=== PATIENT | female | born 1990 | race Caucasian/White ===

== ENCOUNTER 2018-03-04 05:52 | Inpatient (IN) | payer OTHER ==
[~2018-03-04] VITALS: Ht 162.6 cm; Wt 77.3 kg
[2018-03-04] MEDS ORDERED: OXYTOCIN 30U/ 0.9% NaCL 500ML 500 ML IV ONE (06:31)
[2018-03-04] MEDS: D5%-LACTATED RINGERS 1,000 ML IV SCH ×3 (06:31→18:18)
[2018-03-04] MEDS ORDERED: SODIUM CITRATE/CITRIC ACID 30 ML UDC PO PRN (07:00)
[2018-03-04] MEDS ORDERED: METOCLOPRAMIDE 5 MG/ML, 2ML IVPush PRN (07:00)
[2018-03-04] MEDS ORDERED: ONDANSETRON 2MG/ML, 2ML IVPush PRN (07:00)
[2018-03-04] MEDS ORDERED: FENTANYL PF 100 MCG/2ML IVPush PRN (07:00)
[2018-03-04] MEDS ORDERED: CALCIUM CARBONATE 500 MG TAB.CHEW PO PRN (07:00)
[2018-03-04] MEDS ORDERED: FENTANYL PF 100 MCG/2ML IV PRN (07:00)
[2018-03-04] MEDS ORDERED: TERBUTALINE 1 MG/ML, 1ML IVPush PRN (07:00)
[2018-03-04 07:01] LABS: BASOPHILS # (AUTO) 0.02 x10^3/uL (0-0.1); BASOPHILS % (AUTO) 0 % (0-1); EOSINOPHILS # (AUTO) 0.05 x10^3/uL (0-0.4); EOSINOPHILS % (AUTO) 1 % (1-7); LYMPHOCYTES # (AUTO) 1.47 x10^3/uL (1-3.4); LYMPHOCYTES % (AUTO) 17 % (22-44); MD NO; MEAN CORPUSCULAR HEMOGLOBIN 29.5 pg (27.0-34.8); MEAN CORPUSCULAR HGB CONC 33.2 g/dL (32.4-35.8); MEAN CORPUSCULAR VOLUME 88.8 fL (80-100); MONOCYTES # (AUTO) 0.54 x10^3/uL (0.2-0.8); MONOCYTES % (AUTO) 6 % (2-9); NEUTROPHILS # (AUTO) 6.43 x10^3/uL (1.8-6.8); NEUTROPHILS % (AUTO) 76 % (42-75); PLATELET COUNT 190 x10^3/uL (130-400); RED BLOOD COUNT 4.06 x10^6/uL (3.82-5.3); RED CELL DISTRIBUTION WIDTH 13.8 % (9.6-15.2)
[2018-03-04] MEDS ORDERED: OXYTOCIN 30U/ 0.9% NaCL 500ML 500 ML IV PRN (10:51)
[2018-03-04] MEDS ORDERED: OXYTOCIN 30U/ 0.9% NaCL 500ML 500 ML ONE (10:58)
[2018-03-04] MEDS: LACTATED RINGERS 1,000 ML IV SCH ×2 (11:10→14:31)
[2018-03-04] MEDS ORDERED: FENTANYL/BUPIV./NS/PF 250 ML EPIDCONT SCH ×2 (17:13→17:15)
[2018-03-04] MEDS ORDERED: LACTATED RINGERS 1,000 ML IV SCH (17:13)
[2018-03-04] MEDS ORDERED: BUPIVACAINE 0.25% ONE (17:21)
[2018-03-04] MEDS ORDERED: FENTANYL PF 500 MCG, BUPIVACAINE/PF 0.5%, 30ML 62.5 ML in SODIUM CHLORIDE 0.9% 177.5 ML EPIDCONT SCH (17:30)
[2018-03-04] MEDS ORDERED: LACTATED RINGERS 1,000 ML IVBOLUS PRN ×2 (17:30)
[2018-03-04] MEDS ORDERED: EPHEDRINE 50 MG/ML, 1ML IVPush PRN (17:30)
[2018-03-04] MEDS ORDERED: NALOXONE 0.4 MG/ML, 1ML IVPush PRN (17:30)
[2018-03-04] MEDS ORDERED: MISOPROSTOL 200 MCG TABLET PR PRN (21:00)
[2018-03-04] MEDS ORDERED: OXYcodone/APAP 5/325MG TABLET PO PRN (21:00)
[2018-03-04] MEDS ORDERED: NEWBORN KIT ONE (22:37)
[2018-03-05] MEDS ORDERED: OXYTOCIN 30U/ 0.9% NaCL 500ML 500 ML ONE (00:23)
[2018-03-05] MEDS ORDERED: IBUPROFEN 600 MG TABLET ONE (00:23)
[2018-03-05] MEDS: IBUPROFEN 600 MG TABLET PO PRN ×3 (00:27→17:00)
[2018-03-05] MEDS ORDERED: OXYcodone/APAP 5/325MG TABLET ONE (01:17)
[2018-03-05] MEDS: OXYcodone/APAP 5/325MG TABLET PO PRN ×3 (01:21→12:15)
[2018-03-05] MEDS: OXYTOCIN 30U/ 0.9% NaCL 500ML 500 ML IV SCH ×3 (01:23→17:00)
[2018-03-05] MEDS ORDERED: OXYcodone/APAP 5/325MG TABLET PO PRN (01:30)
[2018-03-05 02:20] VITALS: BP 125/79
[2018-03-05 03:00] VITALS: BP 118/72
[2018-03-05 08:09] LABS: BASOPHILS # (AUTO) 0.04 x10^3/uL (0-0.1); BASOPHILS % (AUTO) 0 % (0-1); EOSINOPHILS # (AUTO) 0.03 x10^3/uL (0-0.4); EOSINOPHILS % (AUTO) 0 % (1-7); LYMPHOCYTES # (AUTO) 1.15 x10^3/uL (1-3.4); LYMPHOCYTES % (AUTO) 10 % (22-44); MD NO; MEAN CORPUSCULAR HGB CONC 33.7 g/dL (32.4-35.8); MEAN CORPUSCULAR VOLUME 89.1 fL (80-100); MEAN PLATELET VOLUME 8.1 fL (7.4-10.4); MONOCYTES # (AUTO) 0.73 x10^3/uL (0.2-0.8); MONOCYTES % (AUTO) 6 % (2-9); NEUTROPHILS # (AUTO) 9.48 x10^3/uL (1.8-6.8); NEUTROPHILS % (AUTO) 83 % (42-75); PLATELET COUNT 169 x10^3/uL (130-400); RED BLOOD COUNT 3.88 x10^6/uL (3.82-5.3); RED CELL DISTRIBUTION WIDTH 13.8 % (9.6-15.2)
[2018-03-05 08:45] VITALS: BP 122/80
[2018-03-05] MEDS: DOCUSATE 100 MG CAPSULE PO PRN ×2 (08:58→20:29)
[2018-03-05] MEDS: PRENATAL VIT/IRON/FA 1 EACH TABLET PO SCH (09:00)
[2018-03-05 12:30] VITALS: BP 125/73
[2018-03-05 16:30] VITALS: BP 112/74
[2018-03-05 19:45] VITALS: BP 118/70
[2018-03-06] MEDS: OXYcodone/APAP 5/325MG TABLET PO PRN ×4 (00:25→11:42)
[2018-03-06 00:30] VITALS: BP 119/72
[2018-03-06] MEDS: OXYTOCIN 30U/ 0.9% NaCL 500ML 500 ML IV SCH ×2 (03:00→12:55)
[2018-03-06 07:35] VITALS: BP 121/82
[2018-03-06] MEDS: IBUPROFEN 600 MG TABLET PO PRN ×2 (08:00→14:01)
[2018-03-06] MEDS: DOCUSATE 100 MG CAPSULE PO PRN (08:00)
[2018-03-06] MEDS: PRENATAL VIT/IRON/FA 1 EACH TABLET PO SCH (09:00)
[2018-03-06] MEDS ORDERED: OXYC-302 PO (13:04)
[2018-03-06] MEDS ORDERED: IBUP-1222 PO (13:04)
== END 2018-03-06 14:23 | disposition home or self-care (01) | DRG 807 ==
LOC: LDOP 05:52 → LDIP 06:20 → 2NW 03-05 02:30
PROVIDERS: ADMIT Student in an Organized Health Care Education/Training Program; ATTEND Student in an Organized Health Care Education/Training Program
PROC: 10E0XZZ Delivery of Products of Conception, External Approach (ICD-10-PCS; principal; 2018-03-05)
PROC: 0KQM0ZZ Repair Perineum Muscle, Open Approach (ICD-10-PCS; 2018-03-05)
PROC: 3E0R3BZ Introduction of Anesthetic Agent into Spinal Canal, Percutaneous Approach (ICD-10-PCS; 2018-03-05)
PROC: 00HU33Z Insertion of Infusion Device into Spinal Canal, Percutaneous Approach (ICD-10-PCS; 2018-03-05)
DX: O42.92 Full-term premature rupture of membranes, unspecified as to length of time between rupture and onset of labor (principal); Z37.0 Single live birth; O70.1 Second degree perineal laceration during delivery; Z3A.39 39 weeks gestation of pregnancy
CPT/HCPCS: 36415; 99285; J7121; 85025; 86850; 86900; G0378; J2590; J3010; J7120